=== PATIENT | male | born 1995 | race Caucasian/White ===

== ENCOUNTER 2017-06-01 22:58 | Emergency (ER) | payer BC ==
[~2017-06-01 22:58] MED LIST: WELLBUTRIN XL300 M1 PO
[2017-06-01 23:30] LABS: PLATELET COUNT 216 x10^3mcL (130-400); RED CELL DISTRIBUTION WIDTH 14.1 % (11.5-14.5)
[2017-06-01 23:36] LABS: BASOPHIL % 0 % (0-2)
[2017-06-01 23:39] LABS: CALCIUM 9.4 mg/dL (8.5-10.1); CARBON DIOXIDE 24.6 mmol/L (21-32); CHLORIDE SERUM 94 mmol/L (98-107); GFR1 > 60 mL/min; GLUCOSE SERUM 88 mg/dL (74-106); POTASSIUM SERUM 3.9 mmol/L (3.5-5.1); SODIUM SERUM 135 mmol/L (136-145)
[2017-06-01 23:44] LABS: ALBUMIN 4.1 g/dL (3.4-5.0); ALKALINE PHOSPHATASE 52 U/L (46-116); ALT/SGPT 21 U/L (16-63); AMYLASE 79 U/L (25-115); AST/SGOT 13 U/L (15-37); BILIRUBIN TOTAL 0.9 mg/dL (0.20-1.00); LIPASE 68 IU/L (73-393); TOTAL PROTEIN, SERUM 7.6 g/dL (6.4-8.2)
[2017-06-02 02:05] VITALS: BP 133/84
== END 2017-06-02 02:05 | disposition short-term general hospital (02) ==
LOC: ED 22:58
PROVIDERS: Emergency Medicine
DX: D33.2 Benign neoplasm of brain, unspecified (principal); F99 Mental disorder, not otherwise specified; Z79.899 Other long term (current) drug therapy
CPT/HCPCS: J1100; J2405; J7030; Q0092